=== PATIENT | male | born 1990 | race Caucasian/White ===

== ENCOUNTER 2024-04-21 20:17 | Emergency (ER) | payer MEDICAID, OTHER ==
[~2024-04-21] VITALS: Ht 172.7 cm; Wt 77.1 kg
[2024-04-21 21:14] VITALS: BP 129/77; TEMP 98.4; O2SAT 99
[2024-04-21] MEDS ORDERED: VALA100026 PO (21:14)
== END 2024-04-21 21:24 | disposition home or self-care (01) ==
LOC: ER 20:23
DX: B02.9 Zoster without complications (principal); Z79.624 Long term (current) use of inhibitors of nucleotide synthesis; Z60.2 Problems related to living alone